=== PATIENT | male | born 1985 | race Hispanic/Latino ===

== ENCOUNTER 2019-06-09 11:56 | Outpatient (CLI) | payer OTHER ==
--- NOTE | 2019-06-09 12:52 | XRay Report ---
CHEST 2 VIEWS INDICATION / CLINICAL INFORMATION: Cough and acute bronchitis. Coughing up blood for 4 days. COMPARISON: None available. FINDINGS: SUPPORT DEVICES: None. HEART / MEDIASTINUM: The heart size and pulmonary vasculature are normal. LUNGS / PLEURA: No significant pulmonary or pleural abnormality. No pneumothorax. ADDITIONAL FINDINGS: Multiple consecutive mild to moderate compression fractures in the mid thoracic spine are likely old. IMPRESSION: No acute findings. There is no evidence of pneumonia. Signer Name: Kolton Gonzalez MD Signed: 06/09/2019 12:48 PM Workstation Name: [id number]
== END 2019-06-09 11:57 | disposition home or self-care (01) ==
LOC: SPVIMAG 11:56
PROVIDERS: ATTEND Family Medicine
DX: R05 Cough (principal); J20.9 Acute bronchitis, unspecified
CPT/HCPCS: 71046